=== PATIENT | male | born 1995 | race Caucasian/White ===

== ENCOUNTER 2020-08-26 10:08 | Emergency (ER) | payer BC ==
[~2020-08-26] VITALS: Ht 172.7 cm; Wt 77.1 kg
--- NOTE | 2020-08-26 10:50 | NUR ---
Dr Lofton at the bedside.
[2020-08-26 10:58] VITALS: BP 127/78
[2020-08-26] MEDS ORDERED: KETOROLAC TROMETHAMINE 15 MG INJ IM ONE (11:00)
[2020-08-26] MEDS ORDERED: TDAP DIPH,PERTUSS,TET VAC/PF 0.5 ML DISP.SYRIN IM ONE ×2 (11:00→11:07)
[2020-08-26] MEDS ORDERED: KETOROLAC TROMETHAMINE 15 MG INJ ONE (11:07)
--- NOTE | 2020-08-26 11:19 | NUR ---
Patient discharged to home in stable condition. Written and verbal after care instructions given. Patient verbalizes understanding of instructions. Stressed follow up or return to ER for worsening s/s.
== END 2020-08-26 11:22 | disposition home or self-care (01) ==
LOC: ER 10:08
DX: S61.412A Laceration without foreign body of left hand, initial encounter (principal); W25.XXXA Contact with sharp glass, initial encounter; Y92.89 Other specified places as the place of occurrence of the external cause
CPT/HCPCS: 12001; 90471; 90715; 96372; 99284; J1885; A4217; A4663